=== PATIENT | male | born 1950 | race Two or more races ===

== ENCOUNTER 2018-11-21 02:08 | Outpatient (CLI) | payer MEDICARE | END 2018-11-21 23:59 | disposition home or self-care (01) | LOC: DIABETIC 02:08 | PROVIDERS: ATTEND General Practice | DX: E11.9 Type 2 diabetes mellitus without complications (principal) | CPT/HCPCS: G0108 ==

== ENCOUNTER 2018-12-19 04:20 | Outpatient (CLI) | payer MEDICARE | END 2018-12-19 23:59 | disposition home or self-care (01) | LOC: DIABETIC 04:20 | PROVIDERS: ATTEND General Practice | DX: E11.9 Type 2 diabetes mellitus without complications (principal); Z79.899 Other long term (current) drug therapy | CPT/HCPCS: G0108 ==

== ENCOUNTER 2024-06-15 07:36 | Day surgery (SDC) | payer MEDICARE ==
[2024-06-15] VITALS (9 sets, daily range): BP systolic 119–152; BP diastolic 60–75; PULSE 72–84; RESP 14–17; TEMP 98; O2SAT 95–98
[~2024-06-15] VITALS: Ht 182.9 cm; Wt 77.9 kg
[2024-06-15] MEDS ORDERED: TRAM50TA2 PO (08:11)
[2024-06-15] MEDS ORDERED: ESCI5TAB17 PO (08:11)
[2024-06-15] MEDS ORDERED: FLUT1BLS13 INH (08:11)
[2024-06-15] MEDS ORDERED: LOSA25TA41 PO (08:11)
[2024-06-15] MEDS ORDERED: ASPI81TA52 PO (08:11)
[2024-06-15] MEDS ORDERED: SULF500T59 PO (08:18)
[2024-06-15] MEDS ORDERED: ALBU90AE INH (08:18)
[2024-06-15] MEDS ORDERED: advair (08:18)
[2024-06-15] MEDS ORDERED: MULT-1085 PO (08:18)
[2024-06-15] MEDS ORDERED: calcium (08:18)
[2024-06-15] MEDS ORDERED: ABAT125S SUBCUT (08:18)
[2024-06-15] MEDS ORDERED: OMEP40CA21 PO (08:18)
[2024-06-15 08:54] LABS: BASOPHILS % (AUTO) 1.1 % (0-1); EOSINOPHILS # (AUTO) 0.4 X10'3 (0-0.9); EOSINOPHILS % (AUTO) 9.4 % (0-6); HEMOGLOBIN 12.1 g/dl (14.0-17.9); LYMPHOCYTES # (AUTO) 0.9 X10'3 (1.1-4.8); LYMPHOCYTES % (AUTO) 20.4 % (21-51); MEAN CORPUSCULAR HEMOGLOBIN 31.2 PG (27.0-31.0); MEAN CORPUSCULAR HGB CONC 34.6 g/dL (33.0-36.5); MEAN CORPUSCULAR VOLUME 90.3 FL (78-98); MEAN PLATELET VOLUME 6.4 FL (7.4-10.4); MONOCYTES # (AUTO) 0.5 X10'3 (0-0.9); MONOCYTES % (AUTO) 10.4 % (2-12); NEUTROPHILS # (AUTO) 2.6 X10'3 (1.8-7.7); NEUTROPHILS % (AUTO) 58.7 % (42-75); PLATELET COUNT 252 X10'3 (140-440); RED BLOOD COUNT 3.87 X10'6 (4.70-6.10); RED CELL DISTRIBUTION WIDTH 12.7 % (11.5-14.5); WHITE BLOOD COUNT 4.5 X10'3 (4.5-11.0)
[2024-06-15 09:02] LABS: PROTHROMBIN TIME 10.3 SECONDS (9.0-12.0)
[2024-06-15 09:03] LABS: ALBUMIN 3.5 G/DL (3.4-5.0); ANION GAP 6 (8-16); BLOOD UREA NITROGEN 20 MG/DL (7-18); CALCIUM 8.6 MG/DL (8.5-10.1); CHLORIDE 104 MMOL/L (99-107); CREATININE 0.87 MG/DL (0.60-1.10); MAGNESIUM 2.1 MG/DL (1.5-2.4); SODIUM 139 MMOL/L (135-145); TOTAL CARBON DIOXIDE 28.7 MMOL/L (24-32); eCRCL 84 ML/MIN; eGFR 86 ML/MIN
[2024-06-15 09:06] LABS: GLUCOSE 181 MG/DL (70-104)
[2024-06-15] MEDS: diphenhydrAMINE 25mg capsule PO PRN (09:52)
[2024-06-15] MEDS: normal saline 1,000 ML IV SCH (09:53)
[2024-06-15] MEDS: sodium bicarbonate 1meq/ml syr 150 ML in dextrose 5%-water 1,000 ML IV ONE (09:53)
[2024-06-15] MEDS ORDERED: LIDOcaine 1% (10mg/ml) 2ml vial ONE (11:24)
[2024-06-15] MEDS ORDERED: verapamil 2.5 mg/ml inj IV ONE (11:24)
[2024-06-15] MEDS ORDERED: iohexol 350MG/ML 100ml bottle IV ONE (11:25)
[2024-06-15] MEDS ORDERED: nitroGLYCERIN 500mcg/5mL D5W 5 ML IV ONE (11:25)
[2024-06-15] MEDS ORDERED: fentaNYL/PF 50MCG/1 ML 2ML syringe ONE (11:25)
[2024-06-15] MEDS ORDERED: midazolam 1 mg/ML 2ml injection ONE ×2 (11:25→11:56)
[2024-06-15] MEDS ORDERED: iohexol 350 MG/ML 50ML vial IV ONE (11:25)
[2024-06-15] MEDS ORDERED: heparin 1,000unit/ml 10ml vial 10 ML ONE (11:25)
[2024-06-15] MEDS ORDERED: LIDOcaine 1% 30ml preserv. free vial ONE (12:19)
[2024-06-15] MEDS ORDERED: ondansetron/PF 4mg/2ml inj IV PRN (13:10)
[2024-06-15] MEDS ORDERED: HYDROcodone/acetaminophen 5mg/325mg tablet PO PRN (13:15)
[2024-06-15] MEDS: HYDROcodone/acetaminophen 10/325mg tab PO PRN (15:03)
== END 2024-06-15 16:35 | disposition home or self-care (01) ==
LOC: SSTAY O 07:36
PROVIDERS: ATTEND Internal Medicine Cardiovascular Disease
DX: R94.39 Abnormal result of other cardiovascular function study (principal); I35.0 Nonrheumatic aortic (valve) stenosis; I48.0 Paroxysmal atrial fibrillation; J44.9 Chronic obstructive pulmonary disease, unspecified; I10 Essential (primary) hypertension; E11.9 Type 2 diabetes mellitus without complications; M06.9 Rheumatoid arthritis, unspecified; Z79.899 Other long term (current) drug therapy; Z98.890 Other specified postprocedural states; Z85.46 Personal history of malignant neoplasm of prostate; Z90.49 Acquired absence of other specified parts of digestive tract; Z72.89 Other problems related to lifestyle; Z88.8 Allergy status to other drugs, medicaments and biological substances; Z82.3 Family history of stroke; Z87.442 Personal history of urinary calculi; Z98.49 Cataract extraction status, unspecified eye
CPT/HCPCS: 36415; 80048; 83735; 85025; 85610; 93005; 93458; 99152; 99153; A6258; A6402; C1760; C1769; C1894; J1644; J2003; J2250; J3010; J3490; J7030; J7070; Q0163; Q9967; Z7610; A6449